=== PATIENT | male | born 1985 | race Caucasian/White ===

== ENCOUNTER → 2016-12-05 | Day surgery (SDC) | payer OTHER ==
[2016-12-05 08:07] LABS: HCT 46.9 % (42.0-52.0); HGB 16.2 g/dl (13.2-18.0); MCH 31.6 pg (25.0-31.0); MCHC 34.5 g/dL (32.0-36.0); MCV 91.4 fL (78.0-100.0); MPV 9.8 fL (6.0-9.5); RBC 5.13 M/uL (4.70-6.00); RDW 12.4 % (11.5-14.0); WBC 6.9 K/uL (4.0-10.5)
[2016-12-05 08:27] LABS: BILIRUBIN - TOTAL 0.9 mg/dL (0.1-1.0); CREATININE 0.9 mg/dL (0.7-1.2); GLOBULIN (CALCULATION) 2.6 g/dL (2.2-4.2); POTASSIUM 3.5 mmol/L (3.5-5.1); TOTAL PROTEIN 7.6 g/dL (6.4-8.3)
== END | disposition home or self-care (01) ==
LOC: FAS 07:38
PROVIDERS: Surgery
DX: K29.50 Unspecified chronic gastritis without bleeding (principal); K21.9 Gastro-esophageal reflux disease without esophagitis; F17.290 Nicotine dependence, other tobacco product, uncomplicated; Z88.2 Allergy status to sulfonamides
CPT/HCPCS: 36415; 76705; 80053; 88305; J2704